=== PATIENT | male | born 1970 | race Caucasian/White ===

== ENCOUNTER 2017-09-29 08:10 | Outpatient (CLI) | payer BC ==
--- NOTE | 2017-09-29 09:56 | ULT ---
SPLEEN ULTRASOUND: HISTORY: Evaluate for splenomegaly. COMPARISON: None. TECHNIQUE: Sagittal and transverse imaging of the spleen is performed. FINDINGS: Normal splenic echotexture. The spleen measures 4.5 cm in the short axis and 12.5 cm in the long axi s. IMPRESSION: Upper normal maximum dimension of the spleen. POS: [facility]
== END 2017-09-29 08:11 | disposition home or self-care (01) ==
LOC: SCSULT 08:10
PROVIDERS: ATTEND Internal Medicine Medical Oncology
DX: D69.3 Immune thrombocytopenic purpura (principal); R16.1 Splenomegaly, not elsewhere classified
CPT/HCPCS: 76705